=== PATIENT | female | born 1960 | race Caucasian/White ===

== ENCOUNTER 2020-03-29 11:28 | Outpatient (CLI) | payer OTHER, SELFPAY ==
[2020-03-29 13:19] LABS: Basophils # 0.1 10^3/uL (0.0-0.1); Basophils % 0.7 %; Eosinophils # 0.3 10^3/uL (0.0-0.8); Eosinophils % 3.5 %; Hematocrit 34.6 % (37.0-47.0); Hemoglobin 10.3 g/dL (11.5-15.3); Lymphocytes # 1.8 10^3/uL (0.8-4.8); Lymphocytes % 24.9 %; Mean Corpuscular HGB Conc 29.8 g/dL (30.0-36.0); Mean Corpuscular Hemoglobin 23.6 pg (28.0-34.0); Mean Corpuscular Volume 79.4 fL (81-99); Mean Platelet Volume 10.1 fL (7.4-10.4); Monocytes # 0.6 10^3/uL (0.2-0.9); Monocytes % 8.7 %; Neutrophils # 4.47 10^3/uL (1.8-7.7); Neutrophils % 61.9 %; Nucleated Red Blood Cells % 0 %; Platelet Count 384 10^3/cmm (130-400); Red Blood Count 4.36 10^6/uL (4.1-5.3); Red Cell Distribution Width 18.2 % (12.1-15.1); White Blood Count 7.2 10^3/uL (4.0-10.0)
[2020-03-29 13:27] LABS: Ferritin 25 ng/mL (15-150); Iron 24 ug/dL (37-145); Percent Saturation 6.6 % (20-50); Total Iron Binding Capacity 360 mcg/dl; Unsaturated Iron Binding 336 ug/dL (112-347)
--- NOTE | 2020-03-31 14:31 | ONC CON_ITS ---
Dr. Muñoz New Patient Note Patient: Juliette Luu Unit #: [id number]: 1960 Dicatated By: Pa Muñoz M.D.Date of Visit: Mar 29, 2020 Onc MED New Patient/Consult Referring Physician: Russell Machuca Chief Complaint: Anemia. History of Present Illness: This is a 59 year-old woman with iron deficiency anemia. In 2015 she had become anemic, significant enough to require a blood transfusion. This was done at [facility]. She indicates that last spring she was transfused again at [facility]. She says that she had EGD and colonoscopy 2 or 3 years ago and that no significant abnormalities were found on those studies. Last month she was found to be anemic again with her CBC at that time showing hemoglobin 10.2 g with hematocrit 33%. The white blood cell count was normal at 8300 and the platelet count was normal at 369,000. The red cell indices were hypochromic/microcytic. The serum iron studies show low transferrin saturation at 5%, consistent with iron deficiency. B12 level is normal at 411 pg/mL. She has been on oral iron supplementation with ferrous sulfate for the past 2 weeks. It has made her stool dark, but she is otherwise tolerated it okay. She is feeling a little tired, but she has been able to continue working full-time. ECOG score 0. Her appetite is good and her weight is stable. She has no fever, night sweats, or hot flashes. She has some shortness of breath. She uses an inhaler as needed. She does not complain of cough and she has not been having chest pain. She has known GERD and she does have some heartburn. She takes omeprazole every other day. She has no complaints. She has no significant joint or bone pain. She does not complain of headache. She has had some lightheadedness. She has no focal neurologic symptoms. Past Medical History: Her medical history includes gastroesophageal reflux disease, hypothyroidism, and suspected asthma. Past Surgical History: Her other surgical/procedural history includes arthroscopic left knee surgery, section on 2 occasions, cholecystectomy, reduction mammoplasty, and tonsillectomy. Medications: [place] Thyroid 1 Tablet (of 120 mg) Oral b.i.d., Benadryl Allergy 1 Tablet (of 25 mg) Oral b.i.d., Cetirizine HCl 1 Tablet (of 10 mg) Oral daily, GNP Slow Release Iron 1 - 2 Tablet (of 65 mg) Tablet, controlled release Oral daily, Melatonin 1 Tablet (of 10 mg) Oral daily, Omeprazole 1 Tablet (of 20 mg) Tablet, enteric coated Oral daily on Every Other Day Allergies: No Known Allergies. Social History: Ms. Luu is . 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 She is a non-smoker. She does not drink alcohol. Family History: Father has coronary artery disease and is still living at age 81. Mother is 79 and in good health. A brother and a sister are in good health. Review Of Symptoms: Constitutional - She is feeling a little tired, but she still works full-time, and she has normal activity. Appetite is good and weight is stable. No fever, night sweats, or hot flashes. ECOG score is 0, Eyes - No change in vision, ENMT - No hearing loss or tinnitus. She has allergy related sinus symptoms. No mouth sores. No sore throat or difficulty swallowing, Hematologic/Lymphatic - No abnormal bruising or bleeding, Respiratory - No shortness of breath and she uses an inhaler as needed. No cough. No pleuritic pain or hemoptysis, Cardiovascular - No angina pain. No palpitations, Gastrointestinal - No nausea or vomiting. She has heartburn. No diarrhea or constipation. Her stools have been dark with the iron supplement, but she has not been aware of any blood in the stool, Genitourinary (F) - No dysuria or hematuria. No urinary frequency. No urgency or incontinence, Musculoskeletal - No joint or bone pain, Integumentary - No skin rash or other skin problems, Neurologic - No headache. She has some lightheadedness. No numbness or tingling. No other focal neurologic symptoms, Psychiatric - She has anxiety. She has had some problems with insomnia, but she sleeps okay with melatonin. Vital Signs: Performed on Mar 29, 2020 12:04: 0, 33.68 (HIGH), 1.94 sq.m, 64.00 in, 96 %, 105 /min (HIGH), 18 /min, 164/92 mm(hg) (HIGH), 99.0 F (HIGH), and 196.2 lbs (HIGH). Physical Examination: Constitutional - She appears to be in good general health, Eyes - Sclerae nonicteric. Conjunctivae clear, ENMT - No lesions noted in the oral cavity, Neck - No mass or thyromegaly, Hematologic/Lymphatic - No cervical, clavicular, or axillary adenopathy, Respiratory - Lungs are clear with good air movement bilaterally, Cardiovascular - Heart rhythm is regular. There is no murmur, gallop, or rub noted, Abdomen - Soft and non-tender. Liver and spleen are not enlarged. There is no abdominal mass or ascites noted and there is no inguinal adenopathy, Back/Spine - No spine or CVA tenderness noted, Extremities - No edema. Pedal pulses are palpable bilaterally, Integumentary - No rashes. No suspicious skin lesions noted, Neurologic - No focal neurologic deficits noted. Impression: 1. Patient with iron deficiency anemia. It is uncertain to what extent this may be due to occult GI blood loss versus inadequate oral iron absorption. She currently is on oral iron supplementation with ferrous sulfate. 2. She had GI evaluation with EGD and colonoscopy 2 or 3 years ago, reported to have been unrevealing. Her other medical illnesses include: 3. Hypothyroidism. 4. GERD. 5. Suspected asthma. Plan: The laboratory findings were reviewed with the patient and we discussed the clinic complications. She has iron deficiency anemia. I suspect this is due mainly to inadequate oral iron absorption, as she has had no evidence for GI blood loss. She currently is on oral iron supplementation with ferrous sulfate. Thus far it has been tolerable. I will check additional laboratory studies today to include a repeat CBC with serum iron studies and ferritin. If she is showing adequate response, she can just continue with her oral iron supplementation. If she is not responding or if she starts having more side effects with the oral iron, she will be given parenteral iron replacement with Injectafer. Signed By: Pa Muñoz M.D. <<Signature on File>>
== END 2020-03-29 11:29 | disposition home or self-care (01) ==
LOC: ONCMED 11:32
PROVIDERS: Internal Medicine Medical Oncology; Family Provider Nurse Practitioner; PCP Nurse Practitioner; Visit Provider Internal Medicine Hematology & Oncology
DX: D50.9 Iron deficiency anemia, unspecified (principal); E03.9 Hypothyroidism, unspecified; K21.9 Gastro-esophageal reflux disease without esophagitis
CPT/HCPCS: 36415; 82728; 83540; 83550; 85025; 99204

== ENCOUNTER 2020-04-02 15:14 | Outpatient (CLI) | payer OTHER, SELFPAY ==
[2020-04-02] MEDS: ferric carboxy (IVPB) 750 MG in sodium chloride 0.9% (100 ml) 100 ML 345 MG IV (15:30)
== END 2020-04-02 15:15 | disposition home or self-care (01) ==
LOC: ONCMED 15:16
PROVIDERS: Family Provider Nurse Practitioner; PCP Nurse Practitioner; Visit Provider Internal Medicine Medical Oncology
DX: D50.9 Iron deficiency anemia, unspecified (principal)
CPT/HCPCS: 96365; J1439

== ENCOUNTER 2020-04-09 06:26 | Outpatient (CLI) | payer OTHER, SELFPAY ==
[2020-04-09] MEDS: ferric carboxy (IVPB) 750 MG in sodium chloride 0.9% (100 ml) 100 ML 345 MG IV (15:15)
== END 2020-04-09 06:27 | disposition home or self-care (01) ==
LOC: ONCMED 06:27
PROVIDERS: PCP Nurse Practitioner; Visit Provider Internal Medicine Medical Oncology
DX: D50.9 Iron deficiency anemia, unspecified (principal)
CPT/HCPCS: 96365; J1439

== ENCOUNTER 2020-04-20 09:44 | Emergency (ER) | payer OTHER, SELFPAY ==
[2020-04-20 09:49] VITALS: BP 131/86; PULSE 86; RESP 22; O2SAT 93; BMI 31.6
[2020-04-20 10:03] VITALS: O2SAT 94
--- NOTE | 2020-04-20 10:08 | ECG_ITS ---
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 : 1960 Requested By: Nina Kebede Order Number: [id number] Reading MD: TIANA KIMBROUGH Measurements Intervals [place] Rate: P: KS: QRS: 0 QRSD: T: 0 QT: QTc: Interpretive Statements NO FURTHER INTERPRETATION POSSIBLE ATYPICAL ECG WARNING: DATA QUALITY MAY AFFECT INTERPRETATION Compared to ECG 01/22/2018 11:19:47 Sinus rhythm no longer present ST (T wave) deviation no longer present Electronically Signed On 04-20-2020 18:54:25 [employer] by TIANA KIMBROUGH [id number]
--- NOTE | 2020-04-20 10:08 | XRR_ITS ---
PROCEDURE INFORMATION: Exam: XR Chest, 1 View Exam date and time: 04/20/2020 10:10 AM Age: 59 years old Clinical indication: Shortness of breath; Additional info: SOB TECHNIQUE: Imaging protocol: XR of the chest Views: 1 view. COMPARISON: CR Chest 1 [place] [id number] 01/22/2018 12:53 PM FINDINGS: Lungs: Interstitial prominence and mild left basilar airspace disease. Pleural space: No significant pleural effusion. Heart/Mediastinum: Cardiac silhouette accentuated by epicardial fat. Bones/joints: Mild degenerative change. XR/XR chest 1V portable [id number] IMPRESSION: Interstitial prominence and mild left basilar airspace disease.
[2020-04-20] MEDS: sodium chloride 0.9% 1,000 ML 75 ML IV (10:30)
[2020-04-20] MEDS: albuterol 8 gm MDI 2 PUFF INHALATION (11:00)
[2020-04-20 11:02] LABS: D Dimer 0.55 ug/mIFEU (0-0.59)
[2020-04-20 11:05] LABS: Hematocrit 34.1 % (37.0-47.0); Hemoglobin 10.5 g/dL (11.5-15.3); Lymphocytes # 0.9 10^3/uL (0.8-4.8); Lymphocytes % 21.3 %; Mean Corpuscular HGB Conc 30.8 g/dL (30.0-36.0); Mean Corpuscular Hemoglobin 24.9 pg (28.0-34.0); Mean Platelet Volume 10.3 fL (7.4-10.4); Monocytes # 0.3 10^3/uL (0.2-0.9); Monocytes % 6.9 %; Neutrophils # 3.13 10^3/uL (1.8-7.7); Neutrophils % 71.8 %; Nucleated Red Blood Cells % 0 %; Platelet Count 244 10^3/cmm (130-400); Red Blood Count 4.21 10^6/uL (4.1-5.3); Red Cell Distribution Width 20.5 % (12.1-15.1); White Blood Count 4.4 10^3/uL (4.0-10.0)
[2020-04-20 11:09] VITALS: PULSE 101; RESP 28; O2SAT 95
[2020-04-20 11:09] LABS: Alanine Aminotransferase 78 U/L (0-33); Albumin Level 3.8 g/dL (3.5-5.2); Alkaline Phosphatase 68 IU/L (35-105); Anion Gap 16.2 (5-19); Aspartate Amino Transferase 92 U/L (0-32); Blood Urea Nitrogen 8 mg/dL (6-20); C Reactive Protein 4.7 mg/L (0.0-4.9); Calcium 8.5 mg/dL (8.5-10.5); Carbon Dioxide 24 mmol/L (22-29); Chloride 102 mmol/L (98-107); Globulin 2.8 g/dL (1.3-4.6); Glomerular Filtration Rate 126.7 mL/min (90-130); Glucose 90 mg/dL (65-115); Lactate Dehydrogenase 287 U/L (135-214); Osmolality Calculated 286 mOsm/kg (285-295); Potassium 3.2 mmol/L (3.5-5.1); Sodium 139 mmol/L (136-145); Total Bilirubin 0.2 mg/dL (0.15-1.2); Total Protein 6.6 g/dL (6.6-8.7)
[2020-04-20 11:10] LABS: Lactic Sepsis W/Reflex 2.1 mmol/L (0.5-2.2)
[2020-04-20 11:31] LABS: Ferritin 3175 ng/mL (15-150)
[2020-04-20 12:00] VITALS: BP 98/59; PULSE 93; O2SAT 93
[2020-04-20 12:33] LABS: Reflex Lactate Order REFLEX LACTIC ORDERD
[2020-04-20 13:05] VITALS: BP 126/55; PULSE 94; O2SAT 97
--- NOTE | 2020-04-20 16:56 | ED_ITS ---
HPI - COVID General: Chief Complaint: COVID symptoms Stated Complaint: COVID +, TROUBLE BREATHING Time Seen by Provider: 04/20/20 09:50 Source: patient Mode of arrival: ambulatory Limitations: no limitations Triage information: Has fever, cough or shortness of breath . Exposure to COVID + person last 14 days History of Present Illness: HPI Narrative: 59 yo female patient presents to ER with COVID positive symptoms began 1 week ago and states her coughing has improved and her fevers have resolved but that she noticed today her pulse ox read 88. Pt states she is taking zithromax and steroids currently. Pt states she feels SOB intermittently or with exertion. Pt denies any chest pain, abd pain or urinary symptoms. MD complaint: known COVID positive Prior covid testing: yes, results known COVID 19 common symptoms: positive dyspnea and fatigue; negative fever(s), chills, non-productive cough, productive cough, body aches, headache(s), throat pain, nausea, vomiting or diarrhea COVID 19 other sytmptoms: negative chest pain COVID Results: No Data to Display Review of Systems Const: Reports: fatigue; Denies: fever(s), chills, body aches, change in appetite, change in weight, malaise, night sweats or diaphoresis Eyes: Denies: change in vision, blurry vision, blind spots or photophobia ENMT: Denies: throat pain, uvular edema, enlarged tonsils, mouth pain or swelling of lips/tongue Card: Reports: dyspnea on exertion; Denies: chest pain, palpitations, irregular heart rhythm, edema, swelling of feet/ankles, lightheadedness, syncope, pre-syncope or orthopnea Resp: Reports: dyspnea; Denies: productive cough, non-productive cough, wheezing, stridor or pain on inspiration GI: Denies: abdominal pain, nausea, vomiting, diarrhea or constipation : Denies: flank pain, difficulty voiding, dysuria, urinary frequency, urinary urgency, urinary hesitancy or dribbling Musc: Denies: neck pain, back pain, extremity pain, extremity swelling, joint pain or joint swelling Skin/Breast: Denies: rash Neuro: Denies: headache(s), numbness in extremities, weakness in extremities, sensory changes, lack of coordination, difficulty walking, dizziness or vertigo Psych: Denies: anxiety, depression, suicidal ideation or homicidal ideation PFSH ED PFSH: Medical History Adult onset hypothyroidism Intermittent asthma, well controlled Low serum iron Seasonal and perennial allergic rhinitis Surgical History H/O reduction mammoplasty History of section Family History Other CAD (coronary artery disease) Hyperlipidemia Social History Smoking and tobacco status: never smoked Second hand smoke exposure: No Smoking risk assessment/counseling performed?: No Alcohol intake: never Desire information about alcohol rehabilitation?: No Counseling given: No Desire information about substance/drug rehabilitation?: No Counseling given: No Caregiver/support person: No Lives independently: Yes Household members: spouse Housing: House Marital status: Number of children: 2 History of recent travel: No Current gender identity: Female Physical Exam Const: COMMON NORMALS: no acute distress, patient oriented x3, healthy appearing, alert and well nourished GENERAL APPEARANCE: cooperative, comfortable, well kempt and well developed; not ill appearing ORIENTATION/CONSCIOUSNESS: Yes awake, Yes oriented to person, Yes oriented to place and Yes oriented to time HENMT: COMMON NORMALS: normocephalic, atraumatic, hearing grossly normal bi laterally, external ears normal, EAC's normal, TM's normal bilaterally, Normal external nose present, Normal nasal mucous membranes and turbinates present and moist oral mucous membranes HEAD & SCALP: normal to inspection, normocephalic and atraumatic FACE & SINUS: normal facial exam, sinuses nontender and face symmetric NOSE: Normal external nose present, Normal nares present, Normal nasal mucous membranes and turbinates present, No nasal discharge present and Abnormal external nose present EXTERNAL EAR: Yes external ears normal and Yes mastoids normal EXTERNAL AUDITORY CANAL: EAC's normal TYMPANIC MEMBRANE: TM's normal bilaterally MOUTH: Normal oral and palatal mucosa present, lip normal, tongue normal and Normal salivary glands and ducts present THROAT: posterior oropharynx normal, tonsils normal and uvula midline; no uvular edema Eye: COMMON NORMALS: Equal, round and reactive pupils present, EOMs intact bilaterally, conjunctivae normal, no scleral icterus and no papilledema GENERAL EYE: appearance normal, both eyes and all related structures EYELID: eyelids normal CONJUNCTIVA: Yes conjunctivae normal SCLERA: sclerae normal CORNEA: Yes corneas normal PUPIL: Yes Equal, round and reactive pupils present DIRECT OPHTHALMOSCOPY: Yes no papilledema Neck/C-Spine: COMMON NORMALS: full ROM, no lymphadenopathy, supple, no meningeal signs, no JVD and Thyroid normal GENERAL: Yes normal visual inspection and Yes trachea midline THYROID: Thyroid normal CERVICAL SPINE: Yes cervical ROM normal Lymph: LYMPHATIC: no lymphadenopathy noted and no lymphedema noted Chest: COMMONS NORMALS: normal inspection of the chest and normal palpation of entire chest wall Resp: COMMON NORMALS: normal respiratory effort, No retractions, No use of accessory muscles and clear to auscultation bilaterally EFFORT & INSPECTION: Yes able to speak in complete sentences and Yes symmetric chest movement AUSCULTATION: clear to auscultation bilaterally Cardio: COMMON NORMALS: no JVD, regular rate and regular rhythm RATE: regular rate RHYTHM: regular rhythm GI: COMMON NORMALS: Normal to inspection, nondistended, normoactive bowel sounds present, Soft to palpation, non-tender, No hepatosplenomegaly present, no masses and no bruits INSPECTION: Yes normal to inspection AUSCULTATION: Yes normoactive bowel sounds PALPATION: Yes Soft to palpation and Yes No hepatosplenomegaly present PERCUSSION: normal to percussion RECTAL EXAM: deferred : COMMON NORMALS: Yes no CVA tenderness, Yes normal external appearance, Yes normal appearance of the vagina, Yes normal appearance of the cervix, Yes normal bimanual exam, Yes No adnexal tenderness and Yes no masses BLADDER/KIDNEY EXAM: Yes no CVA tenderness BIMANUAL EXAM - VAGINA & UTERUS: Yes normal bimanual exam Back/Pelvis: COMMON NORMALS: no CVA tenderness, thoracic and lumbar spine normal to inspection, no thoracic nor lumbar tenderness, thoraco-lumbar ROM normal and straight leg raise negative bilaterally THORACIC SPINE/UPPER BACK: Yes normal to inspection LUMBAR SPINE/LOWER BACK: Yes normal to inspection Extremity: COMMON NORMALS: normal to inspection, full ROM and capillary refill normal GENERAL: Yes normal exam except as noted Neuro: COMMON NORMALS: patient oriented x3, CN's II-XII intact bilaterally, moves all extremities, no focal motor deficits, no sensory deficits noted, deep tendon reflexes 2+ bilaterally and gait normal SENSORIUM/ORIENTATION: Yes alert, Yes oriented to person, Yes oriented to place and Yes oriented to time MENINGEAL SIGNS: Yes no meningeal signs CRANIAL NERVES: Yes CN normal except as noted SPEECH: speech normal GAIT: Yes Normal gait present SENSORY EXAM: Yes extremities MOTOR EXAM: 5/5 motor strength present throughout Psych: COMMON NORMALS: mental status grossly normal, Normal thought process present, cooperative, normal affect, speech normal, activity/motor behavior normal, denies hallucinations, denies homicidal ideation and denies suicidal ideation APPEARANCE: Yes grossly normal and Yes well kempt ATTITUDE: Yes calm ACTIVITY/MOTOR BEHAVIOR: Yes appropriate eye contact SPEECH: Yes normal speech THOUGHT PROCESS: Normal thought process present THOUGHT CONTENT: Yes Normal thought content present ATTENTION/CONCENTRATION: Yes attention grossly intact MEMORY/COGNITION: Yes memory grossly intact INSIGHT: Good insight present (Psych) JUDGEMENT: Good judgement present (Psych) Skin: COMMON NORMALS: no rashes or lesions noted, no wounds, turgor normal, no jaundice, no petechiae and no mottling GENERAL SKIN EXAM: no rashes or lesions noted and turgor normal Course Vital Signs: Vital signs: Vital Signs Pulse Rate 94 04/20/20 13:05 Respiratory Rate 28 H 04/20/20 11:09 Blood Pressure 126/55 04/20/20 13:05 Pulse Oximetry 97 04/20/20 13:05 MDM - COVID MDM Narrative: Medical decision making narrative: 9 yo female patient presents to ER with COVID positive symptoms began 1 week ago and states her coughing has improved and her fevers have resolved but that she noticed today her pulse ox read 88. Pt states she is taking zithromax and steroids currently. Pt states she feels SOB intermittently or with exertion. Pt denies any chest pain, abd pain or urinary symptoms. Pt is well appearing non toxic and in no acute distress. Pt does not have an elevated WBC. We did discuss her potassium level and she states she will take potassium supplements at home. Pts labs are otherwise what I would expect for Covid patient. d dimer is below cut off and I am not suspicious of pe. Pt is well appearing non toxic and in no acute distress. Pt has no evidence of hypoxia while here int he ED. Chest xray does not reveal any acute findings. I advised patient to check her pulse ox and to return with any worsening of symptoms Lab Data: Labs: Lab Results 04/20/20 04/20/20 04/20/20 Range/Units 10:32 10:32 10:32 WBC 4.4 (4.0-10.0) 10^3/ uL RBC 4.21 (4.1-5.3) 10^6/u L Hgb 10.5 L (11.5-15.3) g/dL Hct 34.1 L (37.0-47.0) % MCV 81.0 (81-99) fL MCH 24.9 L (28.0-34.0) pg MCHC 30.8 (30.0-36.0) g/dL RDW 20.5 H (12.1-15.1) % Plt Count 244 (130-400) 10^3/c mm MPV 10.3 (7.4-10.4) fL Neut % (Auto) 71.8 % Lymph % (Auto) 21.3 % [place] % (Auto) 6.9 % Eos % (Auto) 0.0 % Baso % (Auto) 0.0 % Neut # (Auto) 3.13 (1.8-7.7) 10^3/u L Lymph # (Auto) 0.9 (0.8-4.8) 10^3/u L [place] # (Auto) 0.3 (0.2-0.9) 10^3/u L Eos # (Auto) 0.0 (0.0-0.8) 10^3/u L Baso # (Auto) 0.0 (0.0-0.1) 10^3/u L Nucleated RBC % (a uto) 0 % Nucleated RBCs # 0.0 /100WBC D-Dimer 0.55 (0-0.59) ug/mIFE U Sodium 139 (136-145) mmol/L Potassium 3.2 L (3.5-5.1) mmol/L Chloride 102 (98-107) mmol/L Carbon Dioxide 24 (22-29) mmol/L Anion Gap 16.2 (5-19) BUN 8 (6-20) mg/dL Creatinine 0.5 (0.5-0.9) mg/dL GFR Calculation 126.7 (90-130) mL/min Glucose 90 (65-115) mg/dL Calculated Osmolal ity 286 (285-295) mOsm/k g Lactic Acid (0.5-2.2) mmol/L Calcium 8.5 (8.5-10.5) mg/dL Ferritin 3175 H (15-150) ng/mL Total Bilirubin 0.2 (0.15-1.2) mg/dL AST 92 H (0-32) U/L ALT 78 H (0-33) U/L Alkaline Phosphata se 68 (35-105) IU/L Lactate Dehydrogen ase 287 H (135-214) U/L C-Reactive Protein 4.7 (0.0-4.9) mg/L Total Protein 6.6 (6.6-8.7) g/dL Albumin 3.8 (3.5-5.2) g/dL Globulin 2.8 (1.3-4.6) g/dL 04/20/20 Range/Units 10:32 WBC (4.0-10.0) 10^3/ uL RBC (4.1-5.3) 10^6/u L Hgb (11.5-15.3) g/dL Hct (37.0-47.0) % MCV (81-99) fL MCH (28.0-34.0) pg MCHC (30.0-36.0) g/dL RDW (12.1-15.1) % Plt Count (130-400) 10^3/c mm MPV (7.4-10.4) fL Neut % (Auto) % Lymph % (Auto) % [place] % (Auto) % Eos % (Auto) % Baso % (Auto) % Neut # (Auto) (1.8-7.7) 10^3/u L Lymph # (Auto) (0.8-4.8) 10^3/u L [place] # (Auto) (0.2-0.9) 10^3/u L Eos # (Auto) (0.0-0.8) 10^3/u L Baso # (Auto) (0.0-0.1) 10^3/u L Nucleated RBC % (a uto) % Nucleated RBCs # /100WBC D-Dimer (0-0.59) ug/mIFE U Sodium (136-145) mmol/L Potassium (3.5-5.1) mmol/L Chloride (98-107) mmol/L Carbon Dioxide (22-29) mmol/L Anion Gap (5-19) BUN (6-20) mg/dL Creatinine (0.5-0.9) mg/dL GFR Calculation (90-130) mL/min Glucose (65-115) mg/dL Calculated Osmolal ity (285-295) mOsm/k g Lactic Acid 2.1 (0.5-2.2) mmol/L Calcium (8.5-10.5) mg/dL Ferritin (15-150) ng/mL Total Bilirubin (0.15-1.2) mg/dL AST (0-32) U/L ALT (0-33) U/L Alkaline Phosphata se (35-105) IU/L Lactate Dehydrogen ase (135-214) U/L C-Reactive Protein (0.0-4.9) mg/L Total Protein (6.6-8.7) g/dL Albumin (3.5-5.2) g/dL Globulin (1.3-4.6) g/dL COVID Results: No Data to Display Discharge Plan Discharge Patient Disposition: Home Clinical Impression: COVID-19 Condition: Stable Prescriptions: No Action loratadine [Claritin] 10 mg tablet 10 mg PO DAILY PRN (Reason: Allergy Symptoms) RF: 0 fluticasone propion-salmeterol [Advair Diskus] 250-50 mcg/dose blister with device 1 inh INHALATION BID Qty: 60 RF: 5 albuterol sulfate [ProAir HFA] 90 mcg/actuation HFA aerosol inhaler 2 puff inhalation QID PRN (Reason: shortness of breath or wheezing) Qty: 18 RF: 2 prednisone 20 mg tablet 20 mg PO BID@10,20 RF: 0 Vitamin C 500 mg Tablet 500 mg PO DAILY@10 RF: 0 iron 325 mg (65 mg iron) Tablet 325 mg PO DAILY RF: 0 zinc 50 mg Tablet 50 mg PO DAILY@10 RF: 0 Vitamin D3 25 mcg (1,000 unit) Capsule 25 mcg PO DAILY@10 RF: 0 [place] Thyroid 120 mg tablet 240 mg PO DAILY@04 RF: 0 Discharge Orders: Discharge ED (Routine); Ordered 04/20/20 Ordered By: Nina Kebede Referrals: Roger Knott, [facility] [Primary Care Provider] - Discharge Diet: Advance as tolerated Discharge Activity: Increase activity as tolerated Activity Restrictions/Additional Instructions: Please check pulse ox with any symptoms of shortness of breath and return to ER with worsening symptoms Please continue to take meds as prescribed Rest and stay hydrated Continue quarantine as advised Coding Level of Care Code 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
== END 2020-04-20 13:03 | disposition home or self-care (01) ==
PROVIDERS: Emergency Provider Registered Nurse; PCP Nurse Practitioner
DX: U07.1 COVID-19 (principal)
CPT/HCPCS: 12345; 71045; 80053; 82728; 83605; 83615; 85025; 85378; 86140; 93005; 94640; 96360; 96361; 99283; J3535; J7030

== ENCOUNTER 2020-04-26 11:40 | Outpatient (CLI) | payer OTHER, SELFPAY ==
[2020-04-26 12:25] LABS: D Dimer 1.62 ug/mIFEU (0-0.59)
== END 2020-04-26 11:41 | disposition home or self-care (01) ==
LOC: ONCMED 11:53
PROVIDERS: PCP Nurse Practitioner; Visit Provider Student in an Organized Health Care Education/Training Program
DX: D50.9 Iron deficiency anemia, unspecified (principal)
CPT/HCPCS: 36415; 85378

== ENCOUNTER 2020-05-08 05:55 | Outpatient (CLI) | payer OTHER, SELFPAY ==
[2020-05-08 09:47] LABS: Basophils % 0.4 %; Eosinophils # 0.1 10^3/uL (0.0-0.8); Eosinophils % 1.4 %; Hematocrit 36.7 % (37.0-47.0); Hemoglobin 11.1 g/dL (11.5-15.3); Lymphocytes % 20.6 %; Mean Corpuscular HGB Conc 30.2 g/dL (30.0-36.0); Mean Corpuscular Hemoglobin 27.1 pg (28.0-34.0); Mean Corpuscular Volume 89.7 fL (81-99); Mean Platelet Volume 10.4 fL (7.4-10.4); Monocytes # 0.4 10^3/uL (0.2-0.9); Monocytes % 8.1 %; Neutrophils # 3.42 10^3/uL (1.8-7.7); Neutrophils % 69.1 %; Nucleated Red Blood Cells % 0 %; Platelet Count 204 10^3/cmm (130-400); Red Blood Count 4.09 10^6/uL (4.1-5.3); Red Cell Distribution Width 21.5 % (12.1-15.1)
[2020-05-08 10:06] LABS: D Dimer 1.22 ug/mIFEU (0-0.59)
[2020-05-08 10:10] LABS: Alanine Aminotransferase 19 U/L (0-33); Albumin Level 3.3 g/dL (3.5-5.2); Alkaline Phosphatase 78 IU/L (35-105); Blood Urea Nitrogen 6 mg/dL (6-20); Calcium 8.2 mg/dL (8.5-10.5); Carbon Dioxide 23 mmol/L (22-29); Chloride 107 mmol/L (98-107); Ferritin 618 ng/mL (15-150); Globulin 2.8 g/dL (1.3-4.6); Glomerular Filtration Rate 126.7 mL/min (90-130); Glucose 135 mg/dL (65-115); Iron 52 ug/dL (37-145); Osmolality Calculated 290 mOsm/kg (285-295); Sodium 140 mmol/L (136-145); Total Bilirubin 0.2 mg/dL (0.15-1.2); Total Protein 6.1 g/dL (6.6-8.7)
[2020-05-08 10:13] LABS: Aspartate Amino Transferase 22 U/L (0-32); Percent Saturation 25.2 % (20-50); Total Iron Binding Capacity 206 mcg/dl; Unsaturated Iron Binding 154 ug/dL (112-347)
--- NOTE | 2020-05-08 11:40 | ONC FU_ITS ---
Sybil Slaughter Patient Note Patient: Juliette Luu Unit #: [id number]: 1960 Dictated By: Russell MaguireDate of Visit: May 08, 2020 Onc MED Follow-Up/Prog Note Chief Complaint: Anemia. History of Present Illness: Mrs Luu is a 59 year-old woman with iron deficiency anemia. In 2015 she had become anemic, significant enough to require a blood transfusion. This was done at [facility]. She indicates that last spring she was transfused again at [facility]. She says that she had EGD and colonoscopy 2 or 3 years ago and that no significant abnormalities were found on those studies. In March 2020, she was found to be anemic again with her CBC at that time showing hemoglobin 10.2 g with hematocrit 33%. The white blood cell count was normal at 8300 and the platelet count was normal at 369,000. The red cell indices were hypochromic/microcytic. The serum iron studies show low transferrin saturation at 5%, consistent with iron deficiency. B12 level is normal at 411 pg/mL. She had been on oral iron supplementation with ferrous sulfate for at least 2 weeks prior to her appointment with Dr Muñoz. It made her stool dark, but she tolerated it otherwise. She has known GERD and she does have some heartburn. She takes omeprazole every other day. Her iron studies on 03/29/2020 were noted to be low. Iron sat was 6.6% and the Ferritin was [address] Muñoz recommened 2 doses of Injectafer for parental iron replacement. Her last dose was on 04/09/2020. She tolerated it well. Mrs Luu is here today for followup post Injectafer. She states she was diagnosed with COVID 19 @ [facility] on 04/13/2020. She states she did not have a test done but was told by the [facility] team there that her symptoms indicated she was positive. She states there were 4 people in her office with the same symptoms at the same time and all were told they were positive for COVID 19. She did have some respiratory involvement but did not require hospitalization. She is followup with the pulmonary team at [place] and they requested a repeat D-dimer today. Her d-dimer on 04/20/2020 was .55; 04/26/2020 was 1.62 and is 1.22 today. She will call the pulmonary office with results of the d dimer today. As far as her iron goes, she states she feels good. Her energy is better overall. 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 She denies any new concerns today. She states her breathing is good and she has had no orthopnea. She denies any chest pain or palpitations. She has had no nausea or vomiting. She states her bowels are normal for her. She denies any urinary symptoms. Her ECOG is 0. Past Medical History: Asthma Gastroesophageal reflux disease Hypothyroidism COVID 19 + in 2019 Past Surgical History: Arthroscopic left knee surgery section on 2 occasions Cholecystectomy Reduction mammoplasty Tonsillectomy Allergies: No Known Allergies. Medications: Advair Diskus 1 Inhalation (of 250-50 mcg/dose) Aerosol Powder, Breath Activated Inhalation b.i.d. [place] Thyroid 1 Tablet (of 120 mg) Oral daily Benadryl Allergy 1 Tablet (of 25 mg) Oral b.i.d. PRN Cetirizine HCl 1 Tablet (of 10 mg) Oral daily GNP Slow Release Iron 1 - 2 Tablet (of 65 mg) Tablet, controlled release Oral daily Melatonin 1 Tablet (of 10 mg) Oral daily Omeprazole 1 Tablet (of 20 mg) Tablet, enteric coated Oral daily on Every Other Day Family History: Ms. Luu's mother is alive. Ms. Luu's father is alive: heart disease. Father has coronary artery disease and is still living at age 81. Mother is 79 and in good health. A brother and a sister are in good health. Social History: Ms. Luu is . Ms. Luu has never smoked. She has no history of drinking. 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 She is a non-smoker. She does not drink alcohol. Review Of Symptoms: Constitutional Denies fevers, chills, night sweats, excessive fatigue or weight loss. Allergic/Immunologic No reactions. Eyes Denies significant visual changes. No diplopia. No amaurosis. ENMT Denies changes in hearing, sore throat, mouth sores, difficulty or changes in swallowing ability, and/or sinus drainage. Hematologic/Lymphatic Denies easy bruising or bleeding. The patient denies any tender or palpable lymph nodes. Respiratory Denies dyspnea on exertion, chest pain, cough or hemoptysis. Denies orthopnea. Cardiovascular Denies anginal chest pain, palpitations or orthopnea. Gastrointestinal Denies nausea, vomiting, diarrhea, GI bleeding, or constipation. Denies change in bowel habits and/or stool color, no heartburn or early satiety. Genitourinary (F) No hematuria, hesitancy, incontinence, vaginal bleeding, discharge or other problems with urination. Musculoskeletal Denies joint pain, swelling or redness. No decreased range of motion. Integumentary Denies chronic rashes, inflammation, ulcerations or skin changes. Neurologic Denies headache, blurred vision, and no areas of focal weakness or numbness. Normal gait. No sensory problems. Psychiatric Denies insomnia, depression, kamila or mood swings. Vital Signs: Performed on May 08, 2020 10:48 Height - 64.00 in Weight - 194.2 lbs (LOW) BSA - 1.93 sq.m BMI - 33.33 (HIGH) Temperature - 98.9 F (HIGH) Pulse - 92 /min Respiration - 17 /min BP - 131/81 mm(hg) O2 Sat - 96 % Pain - 0,0 - Fully active, able to carry on all predisease activities without restrictions. (ECOG) Physical Examination: Constitutional Alert, oriented, no acute distress. Skin pink, warm and dry. Head Normocephalic; atraumatic. Eyes Conjunctivae and sclerae are clear and without icterus. Pupils are reactive and equal. Neck Supple without masses or thyromegaly. No jugular venous distension. Hematologic/Lymphatic No petechiae or purpura. Respiratory Lungs are clear to auscultation without rhonchi or wheezing. Cardiovascular Regular rate and rhythm of heart without murmurs,clicks, gallops or rubs. Back/Spine Non-tender to palpation. Extremities No visible deformities, no cyanosis, clubbing or edema. Musculoskeletal No tenderness or swelling, normal range of motion without obvious weakness. Integumentary No rashes or lesions. Neurologic No sensory or motor deficits, normal cerebellar function, normal gait. Psychiatric Alert and oriented times three. Coherent speech. Verbalizes understanding of our discussions today. Laboratory:Test performed on May 08, 2020 09:35 Ferritin 618 ng/mL Iron 52 mcg/dL Sodium 140 mmol/L Iron Binding Capacity (TIBC) 206 mcg/dl Potassium 4.0 mmol/L % Iron Saturation 25.2 % Chloride 107 mmol/L CO2 23 mmol/L UIBC 154 mcg/dL Anion Gap 14.0 BUN 6 mg/dL Creatinine 0.5 mg/dL Cr Clearance (Est) 170.55 mL/min eGFR 126.7 mL/min Glucose 135 mg/dL Osmolality - Calculated 290 mOsm/kg Calcium 8.2 mg/dL Protein, Total 6.1 g/dL Albumin 3.3 g/dL Globulin 2.8 g/dL Bilirubin, Total 0.2 mg/dL ALT (SGPT) 19 U/L AST (SGOT) 22 U/L Alkaline Phosphatase 78 IU/L WBC 5.0 10 3/uL RBC 4.09 10 6/uL HGB 11.1 g/dL HCT 36.7 % MCV 89.7 fL MCH 27.1 pg MCHC 30.2 g/dL RDW 21.5 % Platelet Count 204 10 3/cmm MPV 10.4 fL Neutrophils 3.42 10 3/uL Lymphocytes 1.0 10 3/uL Monocytes 0.4 10 3/uL Eosinophils 0.1 10 3/uL Basophils 0.0 10 3/uL Neutrophil % 69.1 % Lymphocyte % 20.6 % Monocyte % 8.1 % Eosinophil % 1.4 % Basophils % 0.4 % NRBC % 0 % Impression: 1. Patient with iron deficiency anemia. It is uncertain to what extent this may be due to occult GI blood loss versus inadequate oral iron absorption. She currently is on oral iron supplementation with ferrous sulfate. 2. She had GI evaluation with EGD and colonoscopy 2 or 3 years ago, reported to have been unrevealing. Her other medical illnesses include: 3. Hypothyroidism. 4. GERD. 5. Suspected asthma. The laboratory findings were reviewed with the patient and we discussed the clinic complications. She has iron deficiency anemia. It was suspected that this was due mainly to inadequate oral iron absorption, as she has had no evidence for GI blood loss. She was on oral iron supplementation with ferrous sulfate. However, it was not adequate enough to replace her iron deficiency and she was given 2 doses of Injectafer with the last one given on 04/09/2020. Mrs Luu had followup labs today and her HGB has improved to 11.1 and her iron sat is now 25.2%, with her Ferritin @ 618 and her Iron now reporting at 52. Plan: 1. Continue with intermittent Hgb checks via her [facility] department. 2. Call if she sees the HGB declining or she has any symptoms of iron deficiency. She does not report any PICA symptoms. 3. We will plan to see her back in 6 months with CBC, CMP and iron studies. 4. Mrs Luu was encouraged to call us in the interim if questions or problems arise. Signed By: Russell Maguire-, AOCNP Pa Muñoz MD <<Signature on File>>
== END 2020-05-08 05:56 | disposition home or self-care (01) ==
LOC: ONCMED 05:56
PROVIDERS: PCP Nurse Practitioner; Visit Provider Nurse Practitioner
DX: D50.9 Iron deficiency anemia, unspecified (principal); E03.9 Hypothyroidism, unspecified; K21.9 Gastro-esophageal reflux disease without esophagitis
CPT/HCPCS: 36415; 80053; 82728; 83540; 83550; 85025; 85378; G0463

== ENCOUNTER 2020-09-16 08:55 | Outpatient (CLI) | payer OTHER, SELFPAY ==
--- NOTE | 2020-09-16 09:00 | MM_ITS ---
WS: [id number] BILATERAL DIGITAL SCREENING MAMMOGRAPHY WITH CAD CLINICAL INFORMATION: Z12.39 - Encounter for other screening for malignant neoplasm of breast HISTORY: Screening mammogram. No current complaints. COMPARISON: TECHNIQUE: Bilateral CC and MLO views. FINDINGS: History of breast reduction. Scattered fibroglandular densities bilaterally. No suspicious focal mass, asymmetry, calcifications, or architectural distortion. No evidence of malignancy. A few punctate calcifications. MM/[id number] IMPRESSION: BI-RADS: 2-Benign FOLLOW UP: 1 Year Follow-up Recommend return to annual screening mammography.
== END 2020-09-16 08:56 | disposition home or self-care (01) ==
LOC: RADSHAW 08:57
PROVIDERS: PCP Nurse Practitioner; Visit Provider Nurse Practitioner
DX: Z12.31 Encounter for screening mammogram for malignant neoplasm of breast (principal)
CPT/HCPCS: 77067

== ENCOUNTER → 2021-06-23 11:29 | Outpatient (BNVA) | payer OTHER, SELFPAY | PROVIDERS: PCP Nurse Practitioner; Visit Provider Nurse Practitioner Family | DX: Z20.822 Contact with and (suspected) exposure to COVID-19 (principal); J98.8 Other specified respiratory disorders; J45.20 Mild intermittent asthma, uncomplicated | CPT/HCPCS: 87635 ==

== ENCOUNTER → 2022-05-18 09:22 | Outpatient (BNVA) | payer BC, SELFPAY | PROVIDERS: PCP Nurse Practitioner; Visit Provider Nurse Practitioner Family | DX: R10.9 Unspecified abdominal pain (principal); R00.0 Tachycardia, unspecified | CPT/HCPCS: 74018; 81000 ==

== ENCOUNTER 2022-11-13 14:58 | Outpatient (CLI) | payer BC, SELFPAY ==
--- NOTE | 2022-11-13 15:06 | MM_ITS ---
WS: [id number] BILATERAL SCREENING DIGITAL TOMOSYNTHESIS MAMMOGRAM WITH CAD HISTORY: Z12.31 - Encounter for screening mammogram for malignant ... COMPARISON: 09/16/2020, 08/25/2018 Bilateral CC and MLO views with tomosynthesis and synthetic mammography submitted. Computer aided det ection analyzed. Breast composition: There are scattered areas of fibroglandular density. No suspicious masses, microc alcifications or architectural distortion. MM/[id number] IMPRESSION: BI-RADS: 1-Negative FOLLOW UP: 1 Year Follow-up
== END 2022-11-13 14:59 | disposition home or self-care (01) ==
PROVIDERS: PCP Nurse Practitioner; Visit Provider Nurse Practitioner
DX: Z12.31 Encounter for screening mammogram for malignant neoplasm of breast (principal)
CPT/HCPCS: 77063; 77067

== ENCOUNTER → 2023-06-28 10:51 | Outpatient (BNVA) | payer BC, SELFPAY | PROVIDERS: PCP Nurse Practitioner; Visit Provider Nurse Practitioner Family | DX: R50.9 Fever, unspecified (principal); R05.8 Other specified cough | CPT/HCPCS: 87400; 87426 ==

== ENCOUNTER → 2023-11-30 15:44 | Outpatient (BNVA) | payer OTHER, SELFPAY | PROVIDERS: PCP Nurse Practitioner; Visit Provider Nurse Practitioner Family | DX: R05.9 Cough, unspecified (principal); J45.901 Unspecified asthma with (acute) exacerbation; J45.20 Mild intermittent asthma, uncomplicated | CPT/HCPCS: 71046 ==

== ENCOUNTER 2024-05-24 18:21 | Emergency (ER) | payer OTHER, SELFPAY ==
[2024-05-24] VITALS (34 sets, daily range): BP systolic 82–115; BP diastolic 58–77; PULSE 79–133; RESP 10–29; TEMP 36.8; O2SAT 92–97; BMI 30.9
--- NOTE | 2024-05-24 18:22 | ECG_ITS ---
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
--- NOTE | 2024-05-24 18:24 | XRR_ITS ---
PROCEDURE INFORMATION: Exam: XR Chest Exam date and time: 05/24/2024 6:37 PM Age: 63 years old Clinical indication: Other: High hr and palpitations; Prior surgery; Surgery date: 6+ months; Surgery type: Breast reduction x2 TECHNIQUE: Imaging protocol: Radiologic exam of the chest. Views: 1 view. COMPARISON: CR XR chest 2V* [id number] 11/30/2023 3:42 PM FINDINGS: Lungs: Unremarkable. No consolidation. Pulmonary vascularity is within normal limits. Pleural spaces: Unremarkable. No pleural effusion. No pneumothorax. Heart/Mediastinum: There is an unchanged large air-filled hiatal hernia. The heart is enlarged. Bones/joints: No acute abnormality. XR/XR chest 1V portable [id number] IMPRESSION: 1. No active pulmonary disease. 2. There is an unchanged large air-filled hiatal hernia. The hernia is slightly less distended than the prior study.
--- NOTE | 2024-05-24 18:54 | ED_ITS ---
HPI - Arrhythmia/Palpitations 2 General: Chief Complaint: Arrhythmia/Palpitations Stated Complaint: 120 rest HR dizzy Time Seen by Provider: 05/24/24 18:34 History of Present Illness: Patient presents to the ER with complaints of tachycardia and fatigue today. She said that she was going downhill for some time but is got worse today she slept all day today. Patient does have a history of iron deficiency anemia that she requires transfusions for. She does also see Dr. Muñoz. She thinks it is time for transfusion. Related Data Previous Rx's Medication Instructions Recorded albuterol sulfate 2.5 mg/3 mL 2.5 mg (3 mL) inhalation QID PRN 06/09/23 (0.083 %) solution for nebulization shortness of breath or wheezing #75 mL compressor, for nebulizer #1 ea 06/09/23 albuterol sulfate 90 mcg/actuation 2 puff inhalation QID PRN 07/08/23 aerosol inhaler (ProAir HFA) shortness of breath or wheezing #18 grams fluticasone 250 mcg-salmeterol 50 1 inh inhalation BID #60 ea 07/08/23 mcg/dose blistr powdr for inhalation (Advair Diskus) hydroxyzine pamoate 50 mg capsule 100 mg (2 x 50 mg) PO .at bedtime 07/08/23 #60 caps liraglutide 0.6 mg/0.1 mL (18 mg/3 1.2 mg (0.2 mL) SUBCUT DAILY #6 mL 07/08/23 mL) subcutaneous pen injector (Victoza 2-Saw) olmesartan 20 mg tablet (Benicar) 20 mg PO DAILY #30 tabs 07/08/23 omeprazole magnesium 20 mg 20 mg PO DAILY #30 tabs 07/08/23 tablet,delayed release (Prilosec OTC) pen needle, diabetic 31 gauge x #100 ea 07/08/23 5/16 (Comfort EZ Pen [place]) propranolol 60 mg capsule,24 60 mg PO DAILY #30 caps 07/08/23 hr,extended release venlafaxine 37.5 mg 37.5 mg PO DAILY #30 caps 07/08/23 capsule,extended release 24 hr (Effexor XR) hydrochlorothiazide 12.5 mg tablet 12.5 mg PO QAM #30 tabs 09/20/23 thyroid (pork) 120 mg tablet (ORTHODONTIC ASSISTANT See Rx Instructions PO .COMPLEX 11/09/23 Thyroid) #60 tabs albuterol sulfate 2.5 mg/3 mL 2.5 mg (3 mL) inhalation Q6H PRN 11/21/23 (0.083 %) solution for nebulization shortness of breath or wheezing #75 mL budesonide 0.5 mg/2 mL suspension 0.5 mg (2 mL) inhalation BID #60 mL 11/30/23 for nebulization amoxicillin 500 mg tablet 500 mg PO TID 7 days #21 tabs 05/05/24 ciprofloxacin HCl 500 mg tablet 500 mg PO Q12H #20 tabs 05/24/24 Allergies Allergy/AdvReac Type Severity Reaction Status Date / Time No Known Allergies Allergy Verified 05/05/24 12:15 Review of Systems 2 General: Reports: 10 or more systems reviewed and unremarkable except in HPI and below PFSH ED 2 PFSH: Medical History Obesity (BMI 30.0-34.9) Acid reflux disease Seasonal and perennial allergic rhinitis Low serum iron Intermittent asthma, well controlled Adult onset hypothyroidism Surgical History History of section H/O reduction mammoplasty Family History Other CAD (coronary artery disease) Hyperlipidemia Social History Smoking and tobacco/nicotine status: tobacco/nicotine user, details unknown Second hand smoke exposure: No Alcohol intake: never Substance/Drug Use: never Adopted: No Caregiver/support person: No Lives independently: Yes Household members: spouse Housing: House Marital status: Number of children: 2 service: No Current occupational status: employed Do you think of yourself as: Straight/Heterosexual Current gender identity: Female Physical Exam 2 Const: COMMON NORMALS: no acute distress, average body habitus, patient oriented x3, no limitations, healthy appearing, alert and well nourished HENMT: COMMON NORMALS: normocephalic, atraumatic, hearing grossly normal bilaterally, external ears normal, Normal external nose present and moist oral mucous membranes HEAD & SCALP: normocephalic and atraumatic NOSE: Normal external nose present EXTERNAL EAR: Yes external ears normal Neck/C-Spine: COMMON NORMALS: no JVD Chest: COMMONS NORMALS: normal inspection of the chest and normal palpation of entire chest wall Resp: COMMON NORMALS: normal respiratory effort, No retractions, No use of accessory muscles and clear to auscultation bilaterally AUSCULTATION: clear to auscultation bilaterally Cardio: COMMON NORMALS: no JVD, regular rate, regular rhythm, S1 normal heart sound present, S2 normal heart sound present, No gallops present (Cardio), No clicks present (Cardio), No murmurs present (Cardio) and No rub (Cardio) R ATE: regular rate RHYTHM: regular rhythm HEART SOUNDS: S1 normal heart sound present and S2 normal heart sound present GI: COMMON NORMALS: Normal to inspection, nondistended, normoactive bowel sounds present, Soft to palpation, non-tender, No hepatosplenomegaly present and no masses PALPATION: Yes Soft to palpation and Yes No hepatosplenomegaly present Neuro: COMMON NORMALS: patient oriented x3 SENSORIUM/ORIENTATION: Yes alert Course 2 Vital Signs: Vital signs: Vital Signs Temperature 98.2 F 05/24/24 18:28 Pulse Rate 121 H 05/24/24 20:20 Respiratory Rate 23 H 05/24/24 20:20 Blood Pressure 104/65 05/24/24 20:15 Pulse Oximetry 95 05/24/24 20:20 Oxygen Delivery Me thod Room Air 05/24/24 18:58 MDM - Arrhythmia/Palpitations Medical Decision Making Patient arrived with heart rate of 133, and fatigue, lab work was obtained hemoglobin was stable at 12.3, all other lab work was and chest x-ray was essentially unremarkable except possible slight urinary tract infection. Patient was given 1 L normal saline her heart rate dropped down to 94 beats a minute. Patient will be given Cipro and discharged. Medical Records I reviewed the patient's medical records. Lab Data I reviewed the patient's lab results. 05/24/24 18:50 05/24/24 18:50 Radiology Impressions Chest X-Ray 05/24/24 18:24 IMPRESSION: 1. No active pulmonary disease. 2. There is an unchanged large air-filled hiatal hernia. The hernia is slightly less distended than the prior study. Laboratory Results WBC 10.89 10^3/uL (3.29-11.43) 05/24/24 18:50 RBC 4.80 10^6/uL (3.85-5.65) 05/24/24 18:50 Hgb 12.30 g/dL (11.27-16.99) 05/24/24 18:50 Hct 38.3 % (36-47) 05/24/24 18:50 MCV 79.8 fl (85-98) L 05/24/24 18:50 MCH 25.6 pg (27-33) L 05/24/24 18:50 MCHC 32.1 g/dL (30-55) 05/24/24 18:50 RDW 15.4 % (12.1-15.1) H 05/24/24 18:50 Plt Count 474 10^3/cmm (157-399) H 05/24/24 18:50 MPV 9.3 fL (7.4-10.4) 05/24/24 18:50 Neut % (Auto) 57.0 % 05/24/24 18:50 Lymph % (Auto) 31.3 % 05/24/24 18:50 [place] % (Auto) 8.2 % 05/24/24 18:50 Eos % (Auto) 2.5 % 05/24/24 18:50 Baso % (Auto) 0.7 % 05/24/24 18:50 Neut # (Auto) 6.21 10^3/uL (1.8-7.7) 05/24/24 18:50 Lymph # (Auto) 3.4 10^3/uL (0.8-4.8) 05/24/24 18:50 [place] # (Auto) 0.9 10^3/uL (0.2-0.9) 05/24/24 18:50 Eos # (Auto) 0.3 10^3/uL (0.0-0.8) 05/24/24 18:50 Baso # (Auto) 0.1 10^3/uL (0.0-0.1) 05/24/24 18:50 Nucleated RBC % (auto) 0 % 05/24/24 18:50 Nucleated RBCs # 0.0 /100WBC 05/24/24 18:50 Sodium 137 mmol/L (136-145) 05/24/24 18:50 Potassium 3.7 mmol/L (3.5-5.1) 05/24/24 18:50 Chloride 103 mmol/L (98-107) 05/24/24 18:50 Carbon Dioxide 22 mmol/L (22-29) 05/24/24 18:50 Anion Gap 15.7 (5-19) 05/24/24 18:50 BUN 31 mg/dL (8-23) H 05/24/24 18:50 Creatinine 0.7 mg/dL (0.5-0.9) 05/24/24 18:50 GFR Calculation 84.8 mL/min (90-130) L 05/24/24 18:50 Glucose 164 mg/dL (65-115) H 05/24/24 18:50 Calculated Osmolality 294 mOsm/kg (285-295) 05/24/24 18:50 Calcium 8.8 mg/dL (8.5-10.5) 05/24/24 18:50 Total Bilirubin 0.2 mg/dL (0.15-1.2) 05/24/24 18:50 AST 15 U/L (0-32) 05/24/24 18:50 ALT 11 U/L (0-33) 05/24/24 18:50 Alkaline Phosphatase 79 U/L (35-105) 05/24/24 18:50 Total Protein 7.1 g/dL (6.6-8.7) 05/24/24 18:50 Albumin 3.9 g/dL (3.5-5.2) 05/24/24 18:50 Globulin 3.2 g/dL (1.3-4.6) 05/24/24 18:50 Urine Color Yellow (Yellow) 05/24/24 20:16 Urine Appearance Clear (CLEAR) 05/24/24 20:16 Urine pH 5.5 (5-7) 05/24/24 20:16 Ur Specific [place] 1.020 (1.005-1.030) 05/24/24 20: Urine Protein Negative (Negative) 05/24/24 20:16 Urine Glucose (UA) Negative (Normal) 05/24/24 20:16 Urine Ketones Trace (Negative) 05/24/24 20:16 Urine Blood Negative (Negative) 05/24/24 20: Urine Nitrate Negative (Negative) 05/24/24 20:16 Urine Bilirubin Negative (Negative) 05/24/24 20:16 Urine Urobilinogen 0.2 mg/dL (Negative) 05/24/24 20:16 Ur Leukocyte Esterase 1+ (Negative) A 05/24/24 20:16 Urine RBC 0-2 /hpf (0-2) 05/24/24 20:16 Urine WBC 11-20 /hpf (0-5) H 05/24/24 20:16 Ur Squamous Epith Cells 0-5 /hpf (0-5) 05/24/24 20:16 Amorphous Sediment Not Reportable 05/24/24 20:16 Urine Bacteria None seen /hpf (NONE) 05/24/24 20:16 Hyaline Casts 8.26 /lpf 05/24/24 20:16 Blood Type A Negative 05/24/24 19:11 Rho(D) Type Rh negative 05/24/24 19:11 Antibody Screen Negative 05/24/24 19:11 All radiology interpretation(s) finalized by discharge Discharge Plan Discharge Patient Disposition: Home Clinical Impression: Acute lower urinary tract infection, Acute dehydration Condition: Stable Prescriptions: New ciprofloxacin HCl 500 mg tablet 500 mg PO Q12H Qty: 20 0RF No Action albuterol sulfate 2.5 mg /3 mL (0.083 %) solution for nebulization 2.5 mg inhalation QID PRN (Reason: shortness of breath or wheezing) Qty: 75 2RF (DME) compressor, for nebulizer Device See Rx Instructions .Route Qty: 1 0RF Rx Instructions: As directed albuterol sulfate 2.5 mg /3 mL (0.083 %) solution for nebulization 2.5 mg inhalation Q6H PRN (Reason: shortness of breath or wheezing) Qty: 75 0RF amoxicillin 500 mg tablet 500 mg PO TID 7 Days Qty: 21 0RF ORTHODONTIC ASSISTANT Thyroid 120 mg tablet See Rx Instructions PO .COMPLEX Qty: 60 11RF Rx Instructions: 240mg 2 days; 120mg 5 days orally; budesonide 0.5 mg/2 mL suspension for nebulization 0.5 mg inhalation BID Qty: 60 0RF venlafaxine [Effexor XR] 37.5 mg capsule,extended release 24hr 37.5 mg PO DAILY Qty: 30 11RF propranolol 60 mg capsule,extended release 24 hr 60 mg PO DAILY Qty: 30 11RF omeprazole magnesium [Prilosec OTC] 20 mg tablet,delayed release (DR/EC) 20 mg PO DAILY Qty: 30 11RF Patient Comments: OTC olmesartan [Benicar] 20 mg tablet 20 mg PO DAILY Qty: 30 11RF Victoza 2-Saw 0.6 mg/0.1 mL (18 mg/3 mL) pen injector 1.2 mg SUBCUT DAILY Qty: 6 11RF hydroxyzine pamoate 50 mg capsule 100 mg PO .at bedtime Qty: 60 11RF fluticasone propion-salmeterol [Advair Diskus] 250-50 mcg/dose blister with device 1 inh INHALATION BID Qty: 60 11RF albuterol sulfate [ProAir HFA] 90 mcg/actuation HFA aerosol inhaler 2 puff inhalation QID PRN (Reason: shortness of breath or wheezing) Qty: 18 11RF (DME) pen needle, diabetic [Comfort EZ Pen [place]] 31 gauge x 5/16 needle See Rx Instructions .Route Qty: 100 11RF Rx Instructions: As directed hydrochlorothiazide 12.5 mg tablet 12.5 mg PO QAM Qty: 30 11RF Discharge Orders: Discharge ED (Routine); Ordered 05/24/24 Ordered By: Bipin Hernandez Referrals: Roger Knott, AUTOMOTIVE CUSTOMER EXPERIENCE ADVISOR-C [Primary Care Provider] - 1 week Patient Instructions: Dehydration - Adult, Urinary Tract Infection in Women (DC) Activity Restrictions/Additional Instructions: Please take all your antibiotics as directed. Please follow-up with your family practitioner in the next 7 days for further evaluation treatment as needed. Thank you for choosing [facility] for your healthcare needs today. Please realize that you were seen in the emergency department and that we are providing you with an emergency medical screening exam and this may not be a complete and all exclusive of all testing and/or medical workup we may need to determine your element or severity of your illness. It is very important that you follow-up as instructed with your primary care provider or specialist for the additional evaluation and to discuss your medical treatment plan. You may return to the emergency department should you have concerns or if your condition changes or worsens in any way. 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
[2024-05-24] MEDS: sodium chloride 0.9% 1,000 ML 999 ML IV (19:00)
[2024-05-24 19:07] LABS: Basophils # 0.1 10^3/uL (0.0-0.1); Basophils % 0.7 %; Eosinophils # 0.3 10^3/uL (0.0-0.8); Eosinophils % 2.5 %; Hematocrit 38.3 % (36-47); Lymphocytes # 3.4 10^3/uL (0.8-4.8); Lymphocytes % 31.3 %; Mean Corpuscular HGB Conc 32.1 g/dL (30-55); Mean Corpuscular Hemoglobin 25.6 pg (27-33); Mean Corpuscular Volume 79.8 fl (85-98); Mean Platelet Volume 9.3 fL (7.4-10.4); Monocytes # 0.9 10^3/uL (0.2-0.9); Monocytes % 8.2 %; Neutrophils # 6.21 10^3/uL (1.8-7.7); Nucleated Red Blood Cells % 0 %; Platelet Count 474 10^3/cmm (157-399); Red Cell Distribution Width 15.4 % (12.1-15.1); White Blood Count 10.89 10^3/uL (3.29-11.43)
[2024-05-24 19:19] LABS: Alanine Aminotransferase 11 U/L (0-33); Albumin Level 3.9 g/dL (3.5-5.2); Alkaline Phosphatase 79 U/L (35-105); Anion Gap 15.7 (5-19); Aspartate Amino Transferase 15 U/L (0-32); Blood Urea Nitrogen 31 mg/dL (8-23); Calcium 8.8 mg/dL (8.5-10.5); Carbon Dioxide 22 mmol/L (22-29); Chloride 103 mmol/L (98-107); Creatinine Clr Calc Pharmacy 86.1358; Globulin 3.2 g/dL (1.3-4.6); Glomerular Filtration Rate 84.8 mL/min (90-130); Glucose 164 mg/dL (65-115); Osmolality Calculated 294 mOsm/kg (285-295); Potassium 3.7 mmol/L (3.5-5.1); Sodium 137 mmol/L (136-145); Total Bilirubin 0.2 mg/dL (0.15-1.2); Total Protein 7.1 g/dL (6.6-8.7)
[2024-05-24 20:41] LABS: Bilirubin Urine Negative (Negative); Blood Urine Negative (Negative); Glucose Urine UA Negative (Normal); Ketones Urine Trace (Negative); Leukocyte Esterase Urine 1+ (Negative); Nitrate Urine Negative (Negative); Protein Urine Negative (Negative); Urine Appearance Clear (CLEAR); Urine Color Yellow (Yellow); Urobilinogen Urine 0.2 mg/dL (Negative); pH Urine 5.5 (5-7)
[2024-05-24 20:46] LABS: Add Urine Microscopic? YES; Bacteria Urine None Seen /hpf; Hyaline Casts Urine 8.26 /lpf; RBC Urine 0-2 /hpf (0-2); Squamous Epithelial Cell Urine 0-5 /hpf (0-5)
[2024-05-24 21:08] LABS: Add Urine Culture? Yes; UA Slide Review UA Slide Review Perf
[2024-05-24] MEDS: ciprofloxacin 500 mg Tablet PO (21:36)
== END 2024-05-24 21:38 | disposition home or self-care (01) ==
PROVIDERS: Emergency Medicine; Emergency Provider Emergency Medicine; PCP Nurse Practitioner
DX: N39.0 Urinary tract infection, site not specified (principal); E86.0 Dehydration
CPT/HCPCS: 36415; 71045; 80053; 81001; 85025; 86850; 86900; 87086; 93005; 96360; 99285; J7030

== ENCOUNTER → 2024-06-01 13:54 | Outpatient (BNVA) | payer OTHER, SELFPAY | PROVIDERS: PCP Nurse Practitioner Family; Visit Provider Nurse Practitioner Family | DX: N39.0 Urinary tract infection, site not specified (principal); E66.9 Obesity, unspecified; E03.8 Other specified hypothyroidism; I10 Essential (primary) hypertension; F41.8 Other specified anxiety disorders; K21.9 Gastro-esophageal reflux disease without esophagitis; J45.20 Mild intermittent asthma, uncomplicated; K44.9 Diaphragmatic hernia without obstruction or gangrene; R73.09 Other abnormal glucose; E55.9 Vitamin D deficiency, unspecified; R71.8 Other abnormality of red blood cells | CPT/HCPCS: 81000 ==

== ENCOUNTER → 2024-11-15 15:17 | Outpatient (BNVA) | payer OTHER, SELFPAY | PROVIDERS: PCP Nurse Practitioner Family; Visit Provider Nurse Practitioner Family | DX: R39.9 Unspecified symptoms and signs involving the genitourinary system (principal); N39.0 Urinary tract infection, site not specified | CPT/HCPCS: 81000; 87086 ==

== ENCOUNTER → 2024-11-27 09:11 | Outpatient (BNVA) | payer OTHER, SELFPAY | PROVIDERS: PCP Nurse Practitioner Family; Visit Provider Nurse Practitioner Family | DX: N39.0 Urinary tract infection, site not specified (principal) | CPT/HCPCS: 81000 ==